=== PATIENT | female | born 1960 | race Caucasian/White ===

== ENCOUNTER → 2019-12-20 13:47 | Outpatient (CLI) | payer MEDICAID, SELFPAY ==
[2019-12-20 14:02] LABS: Alanine Aminotransferase 26 U/L (12-78); Albumin Level 4.8 g/dl (3.5-5.0); Albumin/Globulin Ratio 1.6 (1.1-1.8); Alkaline Phosphatase 91 U/L (38-126); Anion Gap 16.4 mEq/L (5-15); Aspartate Amino Transferase 36 U/L (14-36); Bilirubin,Total 0.4 mg/dl (0.2-1.3); Blood Urea Nitrogen 20 mg/dl (7-17); Calcium 9.5 mg/dl (8.4-10.2); Carbon Dioxide 23 mmol/L (22.0-30.0); Chloride 105 mmol/L (98-107); Chol/HDL Ratio 2.5 (1-3.5); Cholesterol 162 mg/dl (140-200); Estimated Glomerular Filt Rate 74 ml/min (>60); GFR (African American) 89 ML/MIN (>60); Glucose 100 mg/dl (74-100); HDL Cholesterol 66 mg/dl (40-60); Potassium 4.4 mmoL/L (3.5-5.1); Sodium 140 mmol/L (136-145); Total Protein,Serum 7.8 g/dl (6.3-8.2); Triglycerides 210 mg/dl (30-150); VLDL Cholesterol 42 mg/dL (0-40)
[2019-12-20 14:13] LABS: Direct LDL Cholesterol 60.26 mg/dL (100-129)
[2019-12-20 14:21] LABS: Free T4 (Free Thyroxine) 1.64 ng/dl (0.78-2.19)
[2019-12-20 14:22] LABS: 25-OH Vitamin D, Total 38.8 ng/mL (30-100)
[2019-12-20 14:29] LABS: Basophils # 0.1 K/mm3 (0-0.2); Basophils % 0.9 % (0.1-2.0); Eosinophils # 0.1 K/mm3 (0.0-0.4); Hematocrit 42.1 % (37.0-47.0); Lymphocytes # 1.9 K/mm3 (0.7-4.5); Lymphocytes % 27.4 % (10-50); Mean Corpuscular HGB Conc 33.2 g/dL (31.8-35.4); Mean Corpuscular Hemoglobin 32.1 pg (27.0-31.2); Mean Corpuscular Volume 96.8 fl (81-99); Mean Platelet Volume 9.3 fl (7.4-10.4); Monocytes # 0.4 K/mm3 (0.1-1.0); Monocytes % 5.1 % (1.7-9.3); Neutrophils # 4.4 K/mm3 (1.8-7.8); Neutrophils % 64.5 % (37.0-80.0); Platelet Count 233 K/mm3 (142-424); Red Blood Count 4.35 M/mm3 (4.20-5.40); White Blood Count 6.8 K/mm3 (4.8-10.8)
[2019-12-20 14:34] LABS: Thyroid Stimulating Hormone 3.95 uIU/mL (0.465-4.68)
== END ==
PROVIDERS: Visit Provider Emergency Medicine
DX: E03.9 Hypothyroidism, unspecified (principal); E78.5 Hyperlipidemia, unspecified; I10 Essential (primary) hypertension; E55.9 Vitamin D deficiency, unspecified
CPT/HCPCS: 80053; 80061; 82306; 84439; 84443; 85025

== ENCOUNTER 2020-03-02 11:29 | Emergency (ER) | payer MEDICAID, SELFPAY ==
[2020-03-02 11:40] VITALS: BP 171/90; PULSE 67; RESP 18; TEMP 36.8; O2SAT 98; BMI 440934.9
[2020-03-02 11:45] VITALS: BMI 44.1
--- NOTE | 2020-03-02 11:47 | CT_ITS ---
PROCEDURE: CT HEAD/BRAIN WO CON CLINICAL INDICATION: headache COMPARISON: No exams were available for comparison TECHNIQUE: Axial images obtained. All CT scans at the facility use one or more dose reduction, viz: automated exposure control, ma/kV adjustment per patient size (including targeted exams where dose is matched to indication, i.e. head), or iterative reconstruction technique. FINDINGS: No midline shift, mass effect, intracranial hemorrhage, hydrocephalus, or extra-axial fluid collection is evident. The calvarium has an unremarkable appearance. No mastoid effusion. No sinus air-fluid level. IMPRESSION: No acute intracranial finding Dictated by: Dr. Michael Gordon MD 03/02/2020 12:24 Dr. Michael Gordon MD in [place] 03/02/2020 12:24
--- NOTE | 2020-03-02 11:55 | PC.NURSE ---
notified rad of ct order
[2020-03-02 12:03] LABS: Basophils # 0.1 K/mm3 (0-0.2); Basophils % 0.9 % (0.1-2.0); Chloride 110 mmol/L (98-107); Eosinophils # 0.2 K/mm3 (0.0-0.4); Eosinophils % 2.5 % (0.1-12.0); Hematocrit 41.6 % (37.0-47.0); Hemoglobin 13.7 g/dL (12.2-16.2); Lymphocytes # 2.2 K/mm3 (0.7-4.5); Lymphocytes % 31.5 % (10-50); Mean Corpuscular Hemoglobin 31.6 pg (27.0-31.2); Mean Corpuscular Volume 95.8 fl (81-99); Mean Platelet Volume 8.4 fl (7.4-10.4); Monocytes # 0.5 K/mm3 (0.1-1.0); Monocytes % 6.6 % (1.7-9.3); Neutrophils # 4.1 K/mm3 (1.8-7.8); Neutrophils % 58.4 % (37.0-80.0); Platelet Count 246 K/mm3 (142-424); Potassium 3.7 mmoL/L (3.5-5.1); Red Blood Count 4.35 M/mm3 (4.20-5.40); Red Cell Distribution Width 13.2 % (11.5-17.5); Sodium 144 mmol/L (136-145)
[2020-03-02 12:05] LABS: Blood Urea Nitrogen 17 mg/dl (7-17); Creatinine Clearance Estimated 61 mL/min (50-200); Estimated Glomerular Filt Rate 64 ml/min (>60); GFR (African American) 78 ML/MIN (>60)
[2020-03-02 12:06] LABS: Alanine Aminotransferase 20 U/L (12-78); Albumin Level 4.4 g/dl (3.5-5.0); Albumin/Globulin Ratio 1.4 (1.1-1.8); Alkaline Phosphatase 83 U/L (38-126); Anion Gap 14.7 mEq/L (5-15); Aspartate Amino Transferase 31 U/L (14-36); Bilirubin,Total 0.2 mg/dl (0.2-1.3); Calcium 9.1 mg/dl (8.4-10.2); Carbon Dioxide 23 mmol/L (22.0-30.0); Globulin 3.1 g/dL (1.3-3.2); Glucose 109 mg/dl (74-100); Total Protein,Serum 7.5 g/dl (6.3-8.2)
--- NOTE | 2020-03-02 12:06 | PC.NURSE ---
Pt to rad.
[2020-03-02 12:33] VITALS: BP 113/70; PULSE 58; O2SAT 98
[2020-03-02 13:00] VITALS: BP 126/98; PULSE 61; O2SAT 97
--- NOTE | 2020-03-02 13:10 | HMH.EDWEAK ---
ED Disposition Clinical Impression: Migraine headache with aura Qualifiers: Status migrainosus presence: without status migrainosus Intractability: not intractable Qualified Code(s): G43.109 - Migraine with aura, not intractable, without status migrainosus Disposition: Home, Self-Care Condition on Discharge: Good Instructions: DI for Migraine Referrals: Lex Peralta MD [Primary Care Provider] - - Critical Care Critical Care Time: No Attestation: On 03/02/20, the high probability of a clinically significant, sudden or life threatening deterioration of the following system(s) required my full and direct attention, intervention and personal management. The time I documented below is in addition to time spent performing reported procedures but includes the following listed in this critical care notation. Medical Decision Making - Medical Records Medical records reviewed: Yes: I reviewed the patient's medical records. - Julio C Inquiry Pt receiving controlled substance: No Vital Signs: 03/02/20 11:40 03/02/20 12:33 03/02/20 13:00 Temperature 98.3 F Temperature Source Oral Pulse Rate [Right Radial] 67 58 L 61 Respiratory Rate 18 Blood Pressure [Right Arm] 171/90 H 113/70 126/98 H Blood Pressure Mean [Right Arm] 117 84 107 Blood Pressure Source [Right Arm] Automatic Cuff Automatic Cuff Automatic Cuff Blood Pressure Position [Right Arm] Sitting Sitting Sitting 02 Sat by Pulse Oximetry 98 98 97 Oxygen Delivery Method Room Air Room Air Room Air - Lab Data Lab Results 03/02/20 11:50: WBC 7.0, RBC 4.35, Hgb 13.7, Hct 41.6, MCV 95.8, MCH 31.6 H, MCHC 33.0, RDW 13.2, Plt Count 246, MPV 8.4, Neut % (Auto) 58.4, Lymph % (Auto) 31.5, Converse % (Auto) 6.6, Eos % (Auto) 2.5, Baso % (Auto) 0.9, Neut # (Auto) 4.1, Lymph # (Auto) 2.2, Converse # (Auto) 0.5, Eos # (Auto) 0.2, Baso # (Auto) 0.1 03/02/20 11:50: Sodium 144, Potassium 3.7, Chloride 110 H, Carbon Dioxide 23, Anion Gap 14.7, BUN 17, Creatinine 0.90, Estimated Creat Clear 61, Estimated GFR 64, Est GFR ( Amer) 78, Glucose 109 H, Calcium 9.1, Total Bilirubin 0.2, AST 31, ALT 20, Alkaline Phosphatase 83, Total Protein 7.5, Albumin 4.4, Globulin 3.1, Albumin/Globulin Ratio 1.4 Result diagrams: 03/02/20 11:50 03/02/20 11:50 Orders (Tests/Meds): ED MEDICATIONS Discontinued Medications Generic Name Dose Route Start Last Admin Trade Name Kristen PRN Reason Stop Dose Admin Ketorolac Tromethamine 30 mg 03/02/20 11:47 03/02/20 11:57 Toradol 30mg/Ml Vial IV 03/02/20 11:48 30 mg ONCE ONE Administration Ondansetron HCl 4 mg 03/02/20 11:47 03/02/20 11:57 Zofran 4mg/2ml Vial IV 03/02/20 11:48 4 mg ONCE ONE Administration - CT Data CT Scan: Head Time Received: 13:16 Findings Narrative: IMPRESSION: No acute intracranial finding - Reevaluation(s) Time: 13:16 Reevaluation #1: On reevaluation, patient is feeling much better. Headache has improved. Repeat neurologic exam is normal. CT head did not show any significant abnormalities. Patient needs to follow-up with her PCP in 24 hours. Given strict return precautions. Verbalized understanding. Medical Decision Narrative: 59-year-old female presented to the emergency department with headache and confusion. Patient is alert and oriented on initial examination. Answering questions without difficulty. I do believe her symptoms are more consistent with migraine. She had no evidence of seizure at this time. Neurologic exam normal. Work-up initiated. Weakness HPI - General Chief complaint: Weakness Stated complaint: seizure activity Time Seen by Provider: 03/02/20 11:45 Mode of Arrival: Ambulatory Limitations: No Limitations Description of Symptoms (Recalled from ER Triage Doc. by RN): Pt reports she is thinks she had seizure activity on Thursday, pt reports hx of seizures. Pt reports she had a headache was weak feeling and lost track of time . Pt reports she
[2020-03-02 14:05] VITALS: BP 110/84; PULSE 60; RESP 20; TEMP 36.8; O2SAT 98
== END 2020-03-02 14:05 | disposition home or self-care (01) ==
PROVIDERS: Emergency Provider Emergency Medicine; PCP Emergency Medicine
DX: G43.109 Migraine with aura, not intractable, without status migrainosus (principal); G40.909 Epilepsy, unspecified, not intractable, without status epilepticus; K21.9 Gastro-esophageal reflux disease without esophagitis; E78.5 Hyperlipidemia, unspecified; I10 Essential (primary) hypertension; E03.9 Hypothyroidism, unspecified; Z79.899 Other long term (current) drug therapy
CPT/HCPCS: 70450; 80053; 85025; 96374; 96375; 99283; J2405

== ENCOUNTER → 2020-04-11 13:37 | Outpatient (POV) | payer MEDICAID, SELFPAY | DX: Z00.00 Encounter for general adult medical examination without abnormal findings (principal) ==

== ENCOUNTER → 2020-04-11 16:02 | Outpatient (CLI) | payer MEDICAID, SELFPAY | PROVIDERS: PCP Emergency Medicine; Visit Provider Specialist | DX: G47.30 Sleep apnea, unspecified (principal) | CPT/HCPCS: 94762 ==

== ENCOUNTER → 2020-04-23 09:05 | Outpatient (CLI) | payer MEDICAID, SELFPAY ==
--- NOTE | 2020-04-23 09:05 | MR_ITS ---
PROCEDURE: MR HEAD/BRAIN WO/W CON CLINICAL INDICATION: seizures, headaches SEIZURES, FREQUENT DAILY HEADACHES WITH PHOTOPHOBIA, CONFUSION. PRIOR CT HEAD 03-02-20 COMPARISON: CT CT HEAD/BRAIN WO CON from 03/02/2020 TECHNIQUE: Routine multiplanar multi echo sequences are performed without gadolinium enhancement. FINDINGS: No midline shift, mass effect, intracranial hemorrhage, or hydrocephalus is evident. No evidence of acute infarction. Periventricular and deep white matter T2 hyperintensities are noted. There is no evidence of corpus callosum involvement. No cerebellar or temporal lobe involvement evident. These areas do not demonstrate contrast enhancement nor do they show restricted diffusion. No enhancing lesions apparent. The hippocampal gyri are unremarkable in the temporal horns are symmetric. Small amount of fluid signal is present in the right mastoid sinus. No paranasal sinus fluid levels. IMPRESSION: 1. No acute intracranial findings. 2. Scattered white matter hyperintensities as described above. Differential diagnosis would in include ischemic gliotic change from microvascular disease, migraine headache, and demyelinating process/MS. 3. Minimal amount of fluid signal in the right mastoid sinus Dictated by: Jairo Stanley MD 04/24/2020 15:08 Jairo Stanley MD in [place] 04/24/2020 15:08
[2020-04-23 09:08] LABS: Blood Urea Nitrogen 16 mg/dl (7-17); Estimated Glomerular Filt Rate 64 ml/min (>60); GFR (African American) 78 ML/MIN (>60)
== END ==
PROVIDERS: PCP Emergency Medicine; Visit Provider Specialist
DX: R51.9 Headache, unspecified (principal); Z86.69 Personal history of other diseases of the nervous system and sense organs
CPT/HCPCS: 36415; 70553; 82565; 84520; A9576

== ENCOUNTER → 2020-06-21 14:25 | Outpatient (CLI) | payer MEDICAID, SELFPAY ==
[2020-06-21 16:00] LABS: Coronavirus 19 IgG Antibody Negative (Negative); Coronavirus 19 IgM Antibody Negative (Negative)
== END ==
PROVIDERS: PCP Emergency Medicine; Visit Provider Specialist
DX: I10 Essential (primary) hypertension (principal); E66.9 Obesity, unspecified; Z01.818 Encounter for other preprocedural examination; Z03.818 Encounter for observation for suspected exposure to other biological agents ruled out
CPT/HCPCS: 36415; 86328; 95810

== ENCOUNTER → 2020-06-26 17:20 | Outpatient (CLI) | payer MEDICAID, SELFPAY ==
[2020-06-26 18:05] LABS: Basophils # 0.1 K/mm3 (0-0.2); Basophils % 1.4 % (0.1-2.0); Eosinophils # 0.1 K/mm3 (0.0-0.4); Eosinophils % 2.1 % (0.1-12.0); Hematocrit 47.1 % (37.0-47.0); Hemoglobin 14.5 g/dL (12.2-16.2); Lymphocytes # 2.2 K/mm3 (0.7-4.5); Lymphocytes % 36.1 % (10-50); Mean Corpuscular HGB Conc 30.8 g/dL (31.8-35.4); Mean Corpuscular Hemoglobin 30.6 pg (27.0-31.2); Mean Corpuscular Volume 99.2 fl (81-99); Mean Platelet Volume 8.8 fl (7.4-10.4); Monocytes # 0.4 K/mm3 (0.1-1.0); Neutrophils # 3.3 K/mm3 (1.8-7.8); Neutrophils % 53.3 % (37.0-80.0); Platelet Count 256 K/mm3 (142-424); Red Blood Count 4.75 M/mm3 (4.20-5.40); Red Cell Distribution Width 14.1 % (11.5-17.5); White Blood Count 6.2 K/mm3 (4.8-10.8)
[2020-06-26 21:35] LABS: Coronavirus 19 IgG Antibody Positive (Negative); Coronavirus 19 IgM Antibody Negative (Negative)
== END ==
PROVIDERS: Visit Provider Otolaryngology
DX: Z01.818 Encounter for other preprocedural examination (principal); Z11.52 Encounter for screening for COVID-19; Z86.16 Personal history of COVID-19; J32.0 Chronic maxillary sinusitis; H70.91 Unspecified mastoiditis, right ear; H65.21 Chronic serous otitis media, right ear
CPT/HCPCS: 36415; 85025; 86328

== ENCOUNTER 2020-06-28 06:44 | Day surgery (SDC) | payer MEDICAID, SELFPAY ==
[2020-06-25 13:24] VITALS: BMI 42.4
[2020-06-28] VITALS (9 sets, daily range): BP systolic 97–163; BP diastolic 60–87; PULSE 59–92; RESP 15–23; TEMP 36.2–36.9; O2SAT 95–100
--- NOTE | 2020-06-28 09:33 | HMH.ANESCL ---
[facility] Anesthesia Checklist - Patient Identification Patient Identification: Arm Band - Structural Data Planned Operative Procedure/s: bmt Consent for Planned Operative Procedure(s) Verified: Yes Verified Documents: Surgical Consent (non) - Additional verifications Anesthesia Reactions: No Hx Blood Transfusions: No Blood Transfusion Reaction: No - Anesthesia Plan Anesthesia Type: General (non) [facility] History Medical History: Reports:: Gastroesophageal Reflux Disease(GERD), Hyperlipidemia, Hypertension, Migraine, Seizures Denies:: Cancer, Diabetes Mellitus Type 1, Diabetes Mellitus Type 2, Internal Pacemaker, MRSA *Have you ever received a pneumonia vaccine?: No *Have you received a flu vaccine this season?: Yes Other Medical History: Reports: Arthritis, Hypothyroidism. Denies: Blood Transfusion Reaction Anesthesia experience/problems:: non Laterality Cases: Right: Total Knee Replacement, Other, Bilateral: Tonsillectomy Other Surgeries: Yes: Cholecystectomy, Colonoscopy, Tubal Ligation. No: Pacemaker Amputation: No Fractures: No - *Social History Last grade of school completed: 9th or 10th Smoking Status: Never smoker Alcohol Intake: never Substance Use Type: denies use *Occupational Status:: employed Housing: house Household Members: significant other, children *Travel in the last 8 weeks: None Family Hx:: Cancer, Substance abuse, Alcoholism
--- NOTE | 2020-06-28 11:29 | P.OP_ITS ---
Date of procedure: 06/28/20 Pre-op Diagnosis:: 1. Right chronic mastoiditis 2. Right serous otitis media Post-op Diagnosis:: Same Procedure performed:: Right Myringotomy And Tube Surgeon:: Cam Zapata MD CONSTRUCTION TRENCH DIGGER:: Other Anesthesia: GETA Estimated blood loss (mL): 0 Operative findings:: N/a Operative note:: With the patient under general anesthesia using the operating microscope for all the procedure the right ear was prepped and draped. An incision was made in the posterior inferior quadrant and serous fluid was aspirated. The right tympanic membrane was extremely scarred due to the chronic mastoiditis. An Mcmanus beveled tube was then placed. Ciprodex drops were applied and the patient was sent to recovery in good general condition. Condition: stable Disposition: PACU Complications:: None
== END 2020-06-28 09:39 | disposition home or self-care (01) ==
LOC: OR 06:46
PROVIDERS: PCP Emergency Medicine; Visit Provider Otolaryngology
PROC: (CPT 69436; principal; 2020-06-28 08:15)
DX: H70.11 Chronic mastoiditis, right ear (principal); H65.91 Unspecified nonsuppurative otitis media, right ear; K21.9 Gastro-esophageal reflux disease without esophagitis; E78.5 Hyperlipidemia, unspecified; I10 Essential (primary) hypertension; G43.909 Migraine, unspecified, not intractable, without status migrainosus; R56.9 Unspecified convulsions; M19.90 Unspecified osteoarthritis, unspecified site; E03.9 Hypothyroidism, unspecified; Z79.899 Other long term (current) drug therapy; Z88.6 Allergy status to analgesic agent
CPT/HCPCS: 69436; 96374; 96375; J2405

== ENCOUNTER → 2020-08-03 13:33 | Outpatient (CLI) | payer MEDICAID, SELFPAY ==
--- NOTE | 2020-08-03 13:36 | CA_ITS ---
APPROVED REPORT EXAM: Comprehensive 2D, Doppler, and color-flow Echocardiogram Glass Or Mirror Inspector: Bessie Restrepo RVT Ht: 5 ft 5 in Wt: 267lbs BSA: 2.24 BP: 120/80 mmHg Indications: MURMUR,HTN,HLD TDS-PT BODY HABITUS 2D Dimensions LVOT 1.84 cm (M/F) 1.5-2.5 LA Volume 27.00 mL LA Volume Index 12.10 mL/m2 (M/F) 16-34 M-Mode Dimensions RVDd 2.73 cm (0.9-2.6) LA Diam 3.67 cm (1.9-4.0) LVDd 4.25 cm (3.5-5.7) Ao Diam 2.89 cm (2.0-3.7) LVDs 2.89 cm (3.5-5.7) IVSd 1.08 cm (0.6-1.1) PWd 0.60 cm (0.6-1.1) EF (Teich) 60.50% FS 32.00% EDV (Teich) 80.80 mL ESV (Teich) 31.90 mL LV Diastology E Decel Time 233.00 (160-240 msec) E/A Ratio 1.0 MED E' 7.80 (< 7 cm/sec) E'/MED E' Ratio 10.79 (>14) LAT E' 10.60 (<10 cm/sec) E/LAT E' Ratio 7.94 (>14) Aortic Valve AO Peak GR. 9.70 mmHg Mitral Valve MV E Max Severino. 84.00 (40-130 cm/s) MV A Velocity 83.00 (40-130 cm/s) E/A Ratio 1.01 MV Decel. Time 233.00 (160-240 ms) MV PHT 68.00 ms Pulmonary Valve PV Peak Velocity 96.00 (50-150 cm/s) Tricuspid Valve TR P. Velocity 237.00 cm/s RAP Estimate 10.00 mmHg RVSP 32.40 mmHg Left Ventricle Left atrium is mildly enlarged, left ventricle is normal size, mild concentric left ventricular hypertrophy, visually estimated ejection fraction 55% with no regional wall motion abnormality, grade 1 diastolic dysfunction seen without tissue Doppler evidence of raise left atrial pressure. Right Ventricle Right atrium and right ventricle mildly enlarged with normal contractility. Aortic Valve Aortic valve is minimally thickened and calcified, without aortic stenosis or aortic insufficiency. Mitral Valve Mitral valve is grossly normal, there is trace mitral regurgitation. Tricuspid Valve Tricuspid valve is grossly normal, there is trace tricuspid regurgitation. Pulmonic Valve Pulmonic valve is poorly visualized. Great Vessels Aortic root is normal size. Pericardium No significant pericardial effusion noted. Conclusion 1. Mild biatrial enlargement, normal left ventricular size, mild concentric left ventricular hypertrophy, visually estimated ejection fraction 55% with no regional wall motion abnormality, grade 1 diastolic dysfunction seen without tissue Doppler evidence of raise left atrial pressure. 2. Mildly enlarged right ventricle with normal contractility. 3. Trace mitral and tricuspid regurgitation. 4. No significant pericardial effusion noted. Electronically signed by : Boogie Valle, 08/03/2020 18:01:15
== END ==
PROVIDERS: PCP Emergency Medicine; Visit Provider Emergency Medicine
DX: R01.1 Cardiac murmur, unspecified (principal); I10 Essential (primary) hypertension; E78.5 Hyperlipidemia, unspecified
CPT/HCPCS: 93306

== ENCOUNTER → 2021-01-11 07:59 | Outpatient (CLI) | payer MEDICAID, SELFPAY ==
[2021-01-11 08:24] LABS: Basophils # 0.1 K/mm3 (0-0.2); Basophils % 1.5 % (0.1-2.0); Eosinophils # 0.2 K/mm3 (0.0-0.4); Hematocrit 40.2 % (37.0-47.0); Hemoglobin 13.2 g/dL (12.2-16.2); Lymphocytes # 1.8 K/mm3 (0.7-4.5); Lymphocytes % 32.2 % (10-50); Mean Corpuscular HGB Conc 32.8 g/dL (31.8-35.4); Mean Corpuscular Hemoglobin 31.1 pg (27.0-31.2); Mean Corpuscular Volume 94.6 fl (81-99); Mean Platelet Volume 8.2 fl (7.4-10.4); Monocytes # 0.3 K/mm3 (0.1-1.0); Monocytes % 5.6 % (1.7-9.3); Neutrophils # 3.1 K/mm3 (1.8-7.8); Neutrophils % 57.7 % (37.0-80.0); Platelet Count 240 K/mm3 (142-424); Red Blood Count 4.24 M/mm3 (4.20-5.40); Red Cell Distribution Width 13.5 % (11.5-17.5); White Blood Count 5.4 K/mm3 (4.8-10.8)
[2021-01-11 09:00] LABS: Alanine Aminotransferase 24 U/L (12-78); Albumin Level 4.3 g/dl (3.5-5.0); Albumin/Globulin Ratio 1.7 (1.1-1.8); Alkaline Phosphatase 74 U/L (38-126); Anion Gap 12.2 mEq/L (5-15); Aspartate Amino Transferase 28 U/L (14-36); Bilirubin,Total 0.6 mg/dl (0.2-1.3); Blood Urea Nitrogen 21 mg/dl (7-17); Carbon Dioxide 22 mmol/L (22.0-30.0); Chloride 109 mmol/L (98-107); Chol/HDL Ratio 2.6 (1-3.5); Cholesterol 139 mg/dl (140-200); Estimated Glomerular Filt Rate 73 ml/min (>60); GFR (African American) 89 ML/MIN (>60); Globulin 2.6 g/dL (1.3-3.2); Glucose 90 mg/dl (74-100); HDL Cholesterol 54 mg/dl (40-60); Potassium 4.2 mmoL/L (3.5-5.1); Sodium 139 mmol/L (136-145); Total Protein,Serum 6.9 g/dl (6.3-8.2); Triglycerides 100 mg/dl (30-150); VLDL Cholesterol 20 mg/dL (0-40)
[2021-01-11 09:19] LABS: Free T4 (Free Thyroxine) 1.44 ng/dl (0.78-2.19)
[2021-01-11 09:32] LABS: Thyroid Stimulating Hormone 3.24 uIU/mL (0.465-4.68)
== END ==
PROVIDERS: Visit Provider Emergency Medicine
DX: E03.9 Hypothyroidism, unspecified (principal); E66.9 Obesity, unspecified; E78.5 Hyperlipidemia, unspecified; I10 Essential (primary) hypertension; E55.9 Vitamin D deficiency, unspecified
CPT/HCPCS: 36415; 80053; 80061; 82306; 84439; 84443; 85025

== ENCOUNTER → 2021-02-12 14:32 | Outpatient (CLI) | payer MEDICAID, SELFPAY | PROVIDERS: Visit Provider Nurse Practitioner Family | DX: Z20.822 Contact with and (suspected) exposure to COVID-19 (principal); U07.1 COVID-19 | CPT/HCPCS: U0003 ==